=== PATIENT | female | born 1965 | race African-American/Black ===

== ENCOUNTER 2016-07-07 22:31 | Emergency (ER) ==
--- NOTE | 2016-07-07 23:23 | PROVIDER DOCUMENTATION ---
HPI-Respiratory General <Michael Leach - Last Filed: 07/07/16 23:29> - General Source: patient - History of Present Illness-Resp Quality of Pain: reports: aching Severity in ED: reports: mild Onset/Duration: reports: 3 days ago Timing: reports: still present Episode Frequency: no prior episodes Current Respiratory Medication Therapy: Initiated see nurses note Associated Symptoms: reports: cough, nasal congestion, sore throat Similar Symptoms Previously?: No Recently seen or treated by another doctor?: No <Madie Jarrell - Last Filed: 07/07/16 23:47> - General Chief Complaint: Sinus Pain Stated Complaint: COLD SX Time Seen by Provider: 07/07/16 23:12 Allergies/Adverse Reactions: Patient Allergies Allergy/AdvReac Type Severity Reaction Status Date / Time No Known Allergies Allergy Verified 10/04/13 06:04 Home Medications: Home Medication List Medication Instructions Recorded Confirmed Last Taken Type Albuterol Sulfate Inhaler 2 puff INH Q6H PRN PRN 10/04/13 07/07/16 10/03/13 19: 00 History [Ventolin Hfa] Amoxicillin/Pot Clavulanate 875 mg PO Q12HR #14 tablet 07/07/16 Unknown Rx [Augmentin] Methylprednisolone [Medrol Dosepak] 4 mg PO DIRECTED #1 package 07/07/16 Unknown Rx - History of Present Illness-Resp Nature of Presenting Problem: 51 year old F presents to the ED with a cc of cough, congestion, sore throat, and sneezing with an onset of 3 days ago. Pt states that she has chest pain with sneezing. (Madie Jarrell) Review of Systems - Adult - REVIEW OF SYSTEMS - ADULT Constitutional: denies: chills, fever Eyes: reports: no symptoms reported Ears, Nose, Mouth & Throat: reports: sinus problem, throat pain Cardiovascular: reports: no symptoms reported Respiratory: reports: cough. denies: shortness of breath Gastrointestinal: reports: no symptoms reported Genitourinary: reports: no symptoms reported Musculoskeletal: reports: no symptoms reported Integumentary: reports: no symptoms reported Neurological: denies: dizziness/vertigo, headache/migraines Psychiatric: reports: no symptoms reported Endocrine: reports: no symptoms reported Hematologic/Lymphatic: reports: no symptoms reported Allergic/Immunologic: reports: no symptoms reported All Other Systems: Reviewed and Negative <Madie Jarrell - Last Filed: 07/07/16 23:47> Past History - Adult - PAST MEDICAL HISTORY-ADULT Review of Records: reports: Nursing Assessment Review, Medications Reviewed Major Childhood Illnesses: reports: denies history Cardiovascular: reports: arrhythmia, hyperlipidemia, murmur Respiratory: reports: sleep apnea Genitourinary: reports: denies history Neurological: reports: denies history Endocrine/Immune: reports: Sickle Cell disease (trait ) - PRIOR SURGERIES/PROCEDURES Surgical/Procedure History: reports: BTL, other (cyst in right breast removed) - IMMUNIZATION STATUS Childhood Immunizations: See Nurse Assessment Flu Vaccine: See Nurse Assessment - SOCIAL HISTORY Smoking: non-smoker Substance Use: none/never Alcohol Use Frequency: never <Madie Jarrell - Last Filed: 07/07/16 23:47> Physical Exam-General - PHYSICAL EXAM-ADULT Initial Vital Signs Reviewed: Yes - CONSTITUTIONAL General Appearance: appears well, alert, no apparent distress - HEAD, EARS, NOSE, MOUTH & THROAT HENMT: pharynx normal - RESPIRATORY Respiratory: chest non-tender, lungs clear, normal breath sounds - CARDIOVASCULAR Cardiovascular: normal peripheral pulses, regular rate, rhythm, no edema - GASTROINTESTINAL (ABDOMEN) Abdominal Exam: non tender, soft - SKIN Integumentary: normal color, normal turgor, warm/dry - PSYCHIATRIC Psych/Mental Status: normal mood/affect, normal thought content, normal thought process, oriented x 3 <Madie Jarrell - Last Filed: 07/07/16 23:47> Departure - Departure Time of Disposition Order: 23:29 Certified Medical Emergency: Emergent <Michael Leach - Last Filed: 07/07/16 23:29> <Madie Jarrell - Last Filed: 07/07/16 23:47> - Departure DIAGNOSIS: Pharyngitis URI (upper respiratory infection) Qualifiers: URI type: unspecified URI Qualified Code(s): J06.9 - Acute upper respiratory infection, unspecified Disposition: HOME 01 Condition: Stable Additional Instructions: ED Follow Up Instructions: You have been treated by a care provider in the Emergency Department. These instructions are being provided to you so you can have an understanding of how to care for yourself upon discharge. Upon discharge from the Emergency Department, you are responsible for making arrangements for follow-up care by a physician of your choice. Take all prescribed medications as directed. Return to the Emergency Department immediately for any new or worsening symptoms. You may call the Physician Referral phone number at [phone] to obtain a list of Physicians who are taking new patients. Prescriptions: Amoxicillin/Pot Clavulanate [Augmentin] 875 mg PO Q12HR #14 tablet Methylprednisolone [Medrol Dosepak] 4 mg PO DIRECTED #1 package Referrals: Umm Bains MD [Primary Care Provider] - Forms: Return to School/Parent Work Instructions: Amoxicillin capsules or tablets, Pharyngitis, Upper Respiratory Infection, Adult, [id number], Methylprednisolone tablets Attestation - Physician/ MARTHA Attestation Patient care was provided by Advanced Practice Provider:: Yes Advanced Practice Provider:: Michael Leach Advanced Practice Provider documentation review:: The Mid-level provider documentation, treatment plan and medical decision making was reviewed by the physician who agrees with all treatment and medical decision making by the [facility]. <Michael Leach - Last Filed: 07/07/16 23:29> - Scribe Verification/Attestation Scribe:: Madie Jarrell Acting as Scribe for:: Michael Leach Scribe documention review:: This chart was documented by a scribe and accurately reflects the service the provider performed and the decisions made by the provider. <Madie Jarrell - Last Filed: 07/07/16 23:47> Physician Attestation - Physician Attestation I, the provider, attest to the following statement:: Michael Leach Physician documentation Attestation:: This documentation recorded by the scribe accurately reflects the service I personally performed and the decisions made by me. <Michael Leach - Last Filed: 07/07/16 23:29>
[2016-07-07] MEDS ORDERED: DECADRON IM ONE (23:28)
[2016-07-07] MEDS ORDERED: DECADRON ONE (23:35)
[2016-07-08 00:25] VITALS: BP 137/78
== END 2016-07-08 00:24 | disposition home or self-care (01) ==
LOC: P.ED 22:31
DX: J06.9 Acute upper respiratory infection, unspecified (principal); J02.9 Acute pharyngitis, unspecified; R05 Cough; E78.5 Hyperlipidemia, unspecified; R09.81 Nasal congestion; R06.7 Sneezing; D57.3 Sickle-cell trait
CPT/HCPCS: 99282; J1100